=== PATIENT | male | born 1975 | race Caucasian/White ===

== ENCOUNTER 2025-07-08 18:37 | Emergency (ER) | payer OTHER, SELFPAY ==
--- NOTE | ~2025-07-08 | XR_ITS ---
EXAMINATION: XR hand RT min 3V DATE: 07/08/2025 18:56 INDICATION: Injury right thumb. TECHNIQUE: 3 views including the right thumb were obtained. COMPARISON: None. FINDINGS: No acute fracture or dislocation of right hand thumb. Soft tissue swelling at the base of the first metacarpal. No other abnormalities are seen. IMPRESSION: 1. No acute bony lesions of right hand including thumb. Repeat x-ray is recommended if symptoms are localized and persistent after a few days. Reviewed, dictated and finalized at location [facility] IMPRESSION: 1. No acute bony lesions of right hand including thumb. Repeat x-ray is recomme nded if symptoms are localized and persistent after a few days.
[2025-07-08 18:48] VITALS: BP 144/81; PULSE 76; RESP 16; TEMP 36.4; O2SAT 98
--- NOTE | 2025-07-08 18:50 | ED.UPPEXIN ---
HPI - Extremity Injury (Upper) General Chief Complaint: Extremity Injury, Upper <Grace Kat PA-C - Last Filed: 07/09/25 10:10> Stated Complaint: hand injury <CRISTOFER García Last Filed: 07/09/25 10:10> Time Seen by Provider: 07/08/25 18:50 <CRISTOFER García Last Filed: 07/09/25 10:10> Focused HPI: This is a 50 year old male that presents to the ER for right hand injury. Sustained a couple of days ago playing basketball. Reports decreased ROM in the thumb. GENERAL: Well-appearing, well-nourished, and in no acute distress. HEAD: Normocephalic, atraumatic. CHEST: No respiratory distress. HEART: Regular rate NEURO: ?Alert and oriented x3. Patient screened in triage and initial orders placed.? ?Additional care and disposition to be based upon?diagnostic testing and treatment. <Grace Kat PA-C - Last Filed: 07/09/25 10:10> Focused HPI: This is a 50 year old male that presents to the ER for right hand injury. Sustained a couple of days ago playing basketball. Reports decreased ROM in the thumb. GENERAL: Well-appearing, well-nourished, and in no acute distress. HEAD: Normocephalic, atraumatic. CHEST: No respiratory distress. HEART: Regular rate NEURO: ?Alert and oriented x3. Patient screened in triage and initial orders placed.? ?Additional care and disposition to be based upon?diagnostic testing and treatment. <Ashley Cabezas PA-C - Last Filed: 07/08/25 21:17> Source: patient <CRISTOFER Tiwari Last Filed: 07/08/25 21:17> Mode of arrival: ambulatory <Ashley Cabezas PA-C - Last Filed: 07/08/25 21:17> Limitations: no limitations <CRISTOFER Tiwari Last Filed: 07/08/25 21:17> History of Present Illness HPI narrative: Agree with above HPI. Reports initial injury happened 1.5 weeks ago but he recently re-injured himself. States he is unable to make a thumbs-up sign. Denies numbness. Denies significant pain. <CRISTOFER Tiwari Last Filed: 07/08/25 21:17> Related Data Allergies/Adverse Reactions: Allergies Allergy/AdvReac Type Severity Reaction Status Date / Time No Known Allergies Allergy Verified 07/08/25 18:50 <Grace Kat PA-C - Last Filed: 07/09/25 10:10> Review of Systems Review of Systems: All systems reviewed & are unremarkable except as noted in HPI. <CRISTOFER Tiwari Last Filed: 07/08/25 21:17> All systems reviewed & are unremarkable except as noted in HPI and below <Ashley Cabezas PA-C - Last Filed: 07/08/25 21:17> Exam Narrative: GENERAL: Well appearing, well-nourished, non-toxic, in no acute distress. HEAD: Normocephalic, atraumatic. RESPIRATORY: Airway patent, respirations nonlabored. CARDIOVASCULAR: Regular rate and rhythm. Radial pulses strong and easily palpable MUSCULOSKELETAL: Moves all extremities. Slight limitation in full abduction of right thumb and full extension into the limbs of position. No significant swelling or tenderness around MCP joint. Sensation intact. Cap refill intact SKIN: Warm, dry, normal color. NEURO: A&O X3. Speech clear. No ataxic movements. PSYCHIATRIC: Appropriate mood and affect. Normal interaction. <CRISTOFER Tiwari Last Filed: 07/08/25 21:17> Course Vital Signs Vital signs: Vital Signs Temperature 97.6 F 07/08/25 18:48 Pulse Rate 76 07/08/25 18:48 Respiratory Rate 16 07/08/25 18:48 Blood Pressure 144/81 H 07/08/25 18:48 Pulse Oximetry 98 07/08/25 18:48 Oxygen Delivery Room Air 07/08/25 18:48 Temperature 97.6 F 07/08/25 18:48 Pulse Rate 74 07/08/25 20:14 Respiratory Rate 15 07/08/25 20:14 Blood Pressure 131/90 07/08/25 20:14 Pulse Oximetry 100 07/08/25 20:14 Oxygen Delivery Room Air 07/08/25 18:48 <Grace Kat PA-C - Last Filed: 07/09/25 10:10> Vital Signs Temperature 97.6 F 07/08/25 18:48 Pulse Rate 76 07/08/25 18:48 Respiratory Rate 16 07/08/25 18:48 Blood Pressure 144/81 H 07/08/25 18:48 Pulse Oximetry 98 07/08/25 18:48 Oxygen Delivery Room Air 07/08/25 18:48 Temperature 97.6 F 07/08/25 18:48 Pulse Rate 74 07/08/25 20:14 Respiratory Rate 15 07/08/25 20:14 Blood Pressure 131/90 07/08/25 20:14 Pulse Oximetry 100 07/08/25 20:14 Oxygen Delivery Room Air 07/08/25 18:48 <Ashley Cabezas PA-C - Last Filed: 07/08/25 21:17> MDM - Extremity Injury (Upper) MDM Narrative Medical decision making narrative: Patient's injury is consistent with musculoskeletal etiology. No signs of neurologic or vascular compromise on physical examination. Compartments are soft without signs of compartment syndrome. XR of right hand without acute osseous abnormality. Discussed this with patient. Discussed high likelihood of gamekeeper's thumb, ligamentous injury. Discussed splinting. Patient's initial injury was over 1 week ago. Advised patient to obtain thumb spica splint [id number] or online and wear at all times. Patient is currently visiting here from [place]. Advised she will need to follow-up with a hand specialist upon return home. Given CD disc of x-ray imaging. Discussed further management, limiting strenuous activity/heavy lifting/further basketball at this time. Given return precautions. Discharged in stable condition. <Grace Kat PA-C - Last Filed: 07/09/25 10:10> Patient?s injury is consistent with musculoskeletal etiology. No signs of neurologic or vascular compromise on physical examination. Compartments are soft without signs of compartment syndrome. XR of right hand without acute osseous abnormality. Discussed this with patient. Discussed high likelihood of gamekeeper's thumb, ligamentous injury. Discussed splinting. Patient's initial injury was over 1 week ago. Advised patient to obtain thumb spica splint [id number] or online and wear at all times. Patient is currently visiting here from [place]. Advised she will need to follow-up with a hand specialist upon return home. Given CD disc of x-ray imaging. Discussed further management, limiting strenuous activity/heavy lifting/further basketball at this time. Given return precautions. Discharged in stable condition. <Ashley Cabezas PA-C - Last Filed: 07/08/25 21:17> Medical Records Attestation: I reviewed the patient's medical records. <Ashley Cabezas PA-C - Last Filed: 07/08/25 21:17> Imaging Data Attestation: I personally reviewed and interpreted this imaging study as follows: <Ashley Cabezas PA-C - Last Filed: 07/08/25 21:17> Radiologist's impression: ITS Impressions Hand X-Ray 07/08/25 19:05 IMPRESSION: 1. No acute bony lesions of right hand including thumb. Repeat x-ray is recommended if symptoms are localized and persistent after a few days. <Ashley Cabezas PA-C - Last Filed: 07/08/25 21:17> Discharge Plan Discharge Clinical Impression: Sprain of hand, thumb, right Qualifiers: Encounter type: initial encounter Sprain of finger site: unspecified site Qualified Code(s): S63.601A - Unspecified sprain of right thumb, initial encounter <Grace Kat PA-C - Last Filed: 07/09/25 10:10> Patient Disposition: Home <CRISTOFER García Last Filed: 07/09/25 10:10> Condition: Stable <CRISTOFER García Last Filed: 07/09/25 10:10> Instructions: Antibiotic Form, Skier's Thumb (ED) <CRISTOFER García Last Filed: 07/09/25 10:10> Additional Instructions: Obtain thumb spica splint online and wear at all times. Avoid strenuous activity or heavy lifting. Follow-up with Hand surgery for further evaluation. Return for new or worsening concerns, recurrent fall or injury, numbness, etc <CRISTOFER García Last Filed: 07/09/25 10:10> Patient Language: Maltese <Grace Kat PA-C - Last Filed: 07/09/25 10:10> Follow-up/Referrals: Rasta Ng MD [Physician, Plastic Surgery] Referral Note: PLASTIC/HAND SURGERY PHYSICIAN NOT ON STAFF,NONSTAFF [Primary Care Provider] Ronen Espana MD [Physician, Orthopedics] Referral Note: ORTHOPEDICS <Grace Kat PA-C - Last Filed: 07/09/25 10:10> Time of Disposition: 19:48 <Grace Kat PA-C - Last Filed: 07/09/25 10:10> 19:48 <Ashley Cabezas PA-C - Last Filed: 07/08/25 21:17>
--- OUTSIDE RECORDS SUMMARY | 2025-07-08 20:03 | XMS_ITS | Encounter Summary ---
Author Organization [facility] Address [address] [place] [address] Care Team Providers Care Photolithographic Stripper Name Role Phone Juanjo Dominguez Nimesh DMD Unavailable [phone] Carlos Moyer [facility] Unavailable [phone] Abril Barry DO Primary Care Provider Alanna Rice DMD Unavailable [phone] Encounter Details Date Type Department Care Team (Late st Contact Info) Description 02/10/2023 Orders Only [facility] [address], [place] [id number] Interface, Pharmacy In [place] Social History Tobacco Use Types Packs/Day Years Used Date Smoking Tobacco: Never Smokeless Tobacco: Never Alcohol Use Standard Drinks/Week Comments Not Asked 0 (1 standard drink = 0.6 oz pur e alcohol) Overall Financial Resource Strain (CARDIA) Florencio r Date Recorded How hard is it for you to pa y for the very basics like food, housing, medical care, and heating? Not hard at all 03/13/2022 Hunger Vital Sign Answer Date Recorded Within the past 12 months, y ou worried that your food would run out before you got the money to buy more. Never true 03/13/20 22 Within the past 12 months, t he food you bought just didn't last and you didn't have money to get more. Never true 03/13/2022 PRAPARE - Transportation Answer Date Re corded In the past 12 months, has l ack of transportation kept you from medical appointments or from getting medications? No 02/14 In the past 12 months, has l ack of transportation kept you from meetings, work, or from getting things needed for daily living? No 03/13/2022 Current Social Needs Answer Date Record ed Would you like someone from your care team to call you to assist with any needs noted above? No 03/13/2022 Substance Use Types Use/Week Comments Not Asked Sex and Gender Information Value Date Recorded Sex Assigned at Not on file Legal Sex Male 2:49 PM PST Gender Identity Not on file Sexual Orientation Not on file documented as of this encounter Plan of Treatment Not on file documented as of this encounter Visit Diagnoses Diagnosis [place] documented in this encounter Care Teams Photolithographic Stripper Relationship Specialty Start Date End Date Juanjo Dominguez DMD [address] [facility], [address] [address] PCP - Dentist 06/11/16 11/30/23 Carlos Moyer RDH [address] [facility], [address] [address] PCP - Dental Hygienist Dental Hygienist 05/29/21 Abril Barry DO [address] [place] [address] PCP - General Family Practice 07/27/22 Alanna Rice DMD [address] [place] [address] PCP - Dentist 12/01/23 documented as of this encounter Additional Source Comments The information being disclosed may contain records protected by federal confidentiality rule 42 CFR Part 2. If so, please note: This information has been disclosed to you from records protected by federal confidentiality rules (42 CFR part 2). The federal rules prohibit you from making any further disclosure of information in this record that identifies a patient as having or having had a substance use disorder either directly, by reference to publicly available information, or through verification of such identification by another person unless further disclosure is expressly permitted by the written consent of the individual whose information is being disclosed or as otherwise permitted by 42 CFR part 2. A general authorization for the release of medical or other information is NOT sufficient for this purpose (see ?? 2.31). The federal rules restrict any use of the information to investigate or prosecute with regard to a crime any patient with a substance use disorder, except as provided at ? 2.12(c)(5) and 2.65.[facility]
--- OUTSIDE RECORDS SUMMARY | 2025-07-08 20:03 | XMS_ITS | Encounter Summary ---
Author Organization [facility] Address [address] [place] [address] Care Team Providers Care Customer Success Director Name Role Phone Carlos Moyer RDH Unavailable Abril Barry DO Primary Care Provider Alanna Rice DMD Unavailable [phone] Encounter Details Date Type Department Care Team (Late st Contact Info) Description 06/29/2024 Orders Only [facility] [address] [place], [place] [id number] Interface, Pharmacy In [place] Social History Tobacco Use Types Packs/Day Years Used Date Smoking Tobacco: Never Smokeless Tobacco: Never Alcohol Use Standard Drinks/Week Comments Not Asked 0 (1 standard drink = 0.6 oz pur e alcohol) Overall Financial Resource Strain (CARDIA) Meñoe r Date Recorded How hard is it for you to pa y for the very basics like food, housing, medical care, and heating? Not hard at all 03/13/2022 PHQ-2 Answer Date Recorded PHQ-2 Total Score 0 11/24/2023 Hunger Vital Sign Answer Date Recorded Within [...] [place] documented in this encounter Care Teams Customer Success Director Relationship Specialty Start Date End Date Carlos Moyer RDH [address] [facility], [facility] [place] [address] [place] [address] PCP - Dental Hygienist Dental Hygienist 05/29/21 Abril Barry DO [address] [place] [address] PCP - General Family Practice 07/27/22 Alanna Rice DMD [address] [facility] [place] [address] PCP - Dentist 12/01/23 documented as of [...] except as provided at ? 2.12(c)(5) and 2.65.[facility]
--- OUTSIDE RECORDS SUMMARY | 2025-07-08 20:03 | XMS_ITS | Encounter Summary ---
Author Organization [facility] Address [address] [place] [address] Care Team Providers Care Nut Grader Name Role Phone Carlos Moyer [facility] Unavailable [phone] Abril Barry DO Primary Care Provider Alanna Rice DMD Unavailable [phone] Encounter Details Date Type Department Care Team (Late st Contact Info) Description 03/28/2025 Orders Only [facility] [address], [place] [id number] Interface, Pharmacy In [place] Social History Tobacco [...] food, housing, medical care, and heating? Not very hard 01/11/2025 PHQ-2 Answer Date Recorded PHQ-2 Total Score 0 11/24/2023 Hunger Vital Sign Answer Date Recorded Within the past 12 months, y ou worried that your food would run out before you got the money to buy more. Never true 01/12/20 25 Within the past 12 months, t he food you bought just didn't last and you didn't have money to get more. Never true 01/11/2025 PRAPARE - Transportation Answer Date Re corded In the past 12 months, has l ack of transportation kept you from medical appointments or from getting medications? No 02/14 In the past 12 months, has l ack of transportation kept you from meetings, work, or from getting things needed for daily living? No 03/13/2022 Current Social Needs Answer Date Record ed Would you like us to assist you in getting help with any of the following? Not at this time 01/11/2025 How do you prefer to get assistance? Not on file 01/11/2025 Call me at: Not on file 01/11/2025 Substance Use Types Use/Week Comments Not Asked Sex and Gender Information Value Date Recorded Sex Assigned at Not on file Legal Sex Male 2:49 PM PST Gender Identity Not on file Sexual Orientation Not on file documented as of this encounter Plan of Treatment Not on file documented as of this encounter Visit Diagnoses Diagnosis [place] documented in this encounter Care Teams Nut Grader Relationship Specialty Start Date End Date Carlos Moyer RDH [address] [facility] [address] [place] [address] PCP - Dental Hygienist Dental Hygienist 05/29/21 Abril Barry DO [address] [place] [address] PCP - General Family Practice 07/27/22 Alanna Rice DMD [address] [place] [address] PCP - Dentist 12/01/23 documented as of [...] except as provided at ? 2.12(c)(5) and 2.65.[facility]
--- OUTSIDE RECORDS SUMMARY | 2025-07-08 20:03 | XMS_ITS | Encounter Summary ---
Author Organization [facility] No [facility] Address [address] [place] [address] Care Team Providers Care Test Preparation Tutor Name Role Phone Juanjo Dominguez Nimesh DMD Unavailable [phone] Unavailable [phone] Abril Barry DO Primary Care Provider Alanna Rice DMD Unavailable [phone] Encounter Details Date Type Department Care Team (Late st Contact Info) Description 10/27/2022 Orders Only [facility] [address] [place] [address] Abdiel Hill MD [address] [place] [address] Social History Tobacco Use Types Packs/Day Years [...] documented as of this encounter Visit Diagnoses Not on filedocumented in this encounter Care Teams Test Preparation Tutor Relationship Specialty Start Date End Date Juanjo Dominguez DMD [address] [facility], [address] [address] PCP - Dentist 06/11/16 11/30/[address] [facility], [address] [address] PCP - Dental Hygienist Dental Hygienist 05/29/21 Abril Barry DO [address] [place] [address] PCP - General Family Practice 07/27/22 Alanna Rice DMD [address] [place] [address] PCP - Dentist 12/01/23 documented as of [...] except as provided at ? 2.12(c)(5) and 2.65.[facility]
--- OUTSIDE RECORDS SUMMARY | 2025-07-08 20:03 | XMS_ITS | Encounter Summary ---
Author Organization [facility] No [facility] Address [address] [place] [address] Care Team Providers Care Mechanic/Welder Name Role Phone Carlos Moyer RDH Unavailable Abril Barry DO Primary Care Provider Alanna Rice DMD Unavailable [phone] Encounter Details Date Type Department Care Team (Late st Contact Info) Description 03/16/2024 Orders Only [facility] [address], [place] [id number] Interface, Pharmacy In [place] Social History Tobacco [...] [place] documented in this encounter Care Teams Mechanic/Welder Relationship Specialty Start Date End Date Carlos Moyer RDH [address] [facility], [facility] [address] [place] [address] PCP - Dental Hygienist Dental Hygienist 05/29/21 Abril Barry DO [address] [place] [address] PCP - General Family Practice 07/27/22 Alanna Rice DMD [address] [place] [facility] [place] [address] PCP - Dentist 12/01/23 documented as of [...] except as provided at ? 2.12(c)(5) and 2.65.[facility]
--- OUTSIDE RECORDS SUMMARY | 2025-07-08 20:03 | XMS_ITS | Encounter Summary ---
Author Organization [facility] Address [address] [place] [address] Care Team Providers Care Roustabout Crew Leader Name Role Phone Carlos Moyer RDH Unavailable [phone] Abril Barry DO Primary Care Provider Alanna Rice DMD Unavailable [phone] Encounter Details Date Type Department Care Team (Late st Contact Info) Description 11/30/2024 Orders Only [facility] [address], [place] [phone] Interface, Pharmacy In [place] Social History Tobacco [...] [place] documented in this encounter Care Teams Roustabout Crew Leader Relationship Specialty Start Date End Date Carlos Moeyr RDH [address] [facility], [facility] [address] [place] [address] PCP - Dental Hygienist Dental Hygienist 05/29/21 Abril Barry DO [address] [place] [address] PCP - General Family Practice 07/27/22 Alanna Rice DMD [address] [facility] [place] [address] PCP - Dentist 12/01/23 documented as of [...] except as provided at ? 2.12(c)(5) and 2.65.[facility]
--- OUTSIDE RECORDS SUMMARY | 2025-07-08 20:03 | XMS_ITS | Encounter Summary ---
Author Organization [facility] No [facility] Address [address] [place] [address] Care Team Providers Care Fleet Maintenance Manager Name Role Phone Juanjo Dominguez Nimesh DMD Unavailable [phone] Carlos Moyer [facility] Unavailable [phone] Abril Barry DO Primary Care Provider Alanna Rice DMD Unavailable [phone] Encounter Details Date Type Department Care Team (Late st Contact Info) Description 09/16/2023 Orders Only [facility] [address] [place], [place] [phone] Interface, Pharmacy In [place] Social History Tobacco [...] [place] documented in this encounter Care Teams Fleet Maintenance Manager Relationship Specialty Start Date End Date Juanjo Dominguez DMD [address] [facility], [address] [address] PCP - Dentist 06/11/16 11/30/23 Carlos Moyer RDH [address] [facility], [address] [address] PCP - Dental Hygienist Dental Hygienist 05/29/21 Abril Barry DO [address] [place] [address] PCP - General Family Practice 07/27/22 Alanna Rice DMD [address] [place] [address] PCP - Dentist 12/01/23 documented as of [...] except as provided at ? 2.12(c)(5) and 2.65.[facility]
--- OUTSIDE RECORDS SUMMARY | 2025-07-08 20:03 | XMS_ITS | Clinical Summary ---
Author Organization [facility] Address [address] [place] [address] Care Team Providers Care Food Checkers And Cashiers Supervisor Name Role Phone Carlos Moyer RDH Unavailable Abril Barry DO Primary Care Provider KrystalAlanna galaviz DMD Unavailable [phone] Source Comments NOTE: The information displayed by Care Everywhere is extracted from the complete medical record and may not identify all current or past patient conditions. See below for further instructions regarding Substance Use Disorder patients.[facility] Allergies Active Allergy Reactions Criticality Noted Date Comments No Known Drug Allergies 01/27/2009 Medications Terbinafine (LAMISIL) 250 mg Oral TabIndications :ONYCHOMYCOSIS Take 1 tablet by mouth daily for 3 months 90 tablet 5 026 Active Additional Information Patient not taking.Reported on 05/10/2025 Minoxidil (LONITEN) 2.5 mg Oral TabIndications :ALOPECIA Take half tablet by mouth daily 45 tablet 2 06/28/2025 6:40 AM PST 5 026 Active Sodium Fluoride (FLUORIDEX DAILY DEFENSE) 1.1 % [place] PasteIndicatio ns:DENTAL CARIES Use instead of toothpaste and brush teeth for at least 1 minute daily at bedtime. Do not eat, drink, or rinse for 30 minutes after using 112 g 06/28/2025 6:40 AM PST 5 026 Active Typhoid Vaccine Live (VIVOTIF) 2 billion unit Oral CPDR SR CapIndications :VACCINATION,P ROPHYLACTIC MEASURE Take 1 capsule by mouth every other day 1 hour before breakfast with a large glass of water for 4 doses, Refrigerate, Do not take with antibiotics, Start at least 2 weeks before trip 4 capsule 5 026 Active Atovaquone-Pro guanil (MALARONE) 250-100 mg Oral TabIndications :PROPHYLACTIC MEASURE Take 1 tablet by mouth daily starting 1 day before entering malaria risk area, every day during trip and for 7 days after leaving the area to prevent malaria 30 tablet 5 026 Active Sodium Fluoride (FLUORIDEX/CLI NPRO 5000) 1.1 % [place] PasteIndicatio ns:DENTAL CARIES Use instead of toothpaste and brush teeth for at least 1 minute daily at bedtime, do not eat, drink, or rinse for 30 minutes after using 112 g 4 025 Discontinu ed(Continu e Therapy) Fluorouracil (EFUDEX) 5 % Top CreaIndication s:ACTINIC KERATOSIS Apply to affected area(s) every morning and evening for 21 days 40 g 4 025 Additional Information Patient not taking.Reported on 08/05/2024 Active Problems Problem Noted Date Diagnosed Date LEFT INGUINAL HERNIA 05/10/2025 HX OF RETINAL TEAR 01/20/2024 HX OF LASER RETINOPEXY FOR RETINAL TEAR 01/20/20 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 This variant is known to cause/be associated with an increased risk for melanoma, pancreatic, and other cancers (sometimes called familial atypical multiple mole melanoma syndrome [FAMMM]). RIGHT THUMB PAIN 10/25/2011 ARTHRALGIA OF ANKLE OR FOOT. 10/25/2011 CERVICALGIA. 10/25/2011 FHX OF DM 10/25/2011 SPRAIN OF ANKLE. 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 04/01/2009 SPRAIN ELBOW AND FOREARM. 04/01/2009 HX OF MELANOMA, SKIN 04/01/2008 Overview (08/05/2019): Lt upper back, unknown details, s/p WLE 1994 Encounters Date Type Department Care Team Description 06/21/2025 1:20 PM PST Dental Annual Exam [facility] [address] [place] [address] Alma Mccann [facility] (Recall prophy) 05/10/2025 10:00 AM PDT Office Visit [facility] General Surgery [address] [place] [address] Kaushik Donato MD LEFT INGUINAL HERNIA (Primary Dx); VACCINATION from Last 3 Months Immunizations Immunization Administration Dates Next Due COVID-19 mRNA LNP-S, PF, () 12YRS-Adult(Pfizer), 30mcg/0.3mL 05/12/2023 COVID-19 mRNA LNP-S, bivalen t PF 12yrs-adult (Pfizer), 30mcg/0.3mL 07/02/2022 COVID-19 mRNA, LNP-S, PF (Rheonix-BioNTMinuum) PURPLE CAP 06/19/2021 COVID-19 mRNA, PF, (2023-) 12yrs-adult (Pfizer), 30 mcg/0.3mL 06/29/2024 COVID-19 mRNA, pf ([id number] ) 12yrs-adult (Comirnaty Rheonix) 30 mcg/0.3mL 05/10/2025 HAV adult (Hepatitis A) 03/15/2011,08/06/2010 HBV adult (Hepatitis B) 10/25/2011,03/15/2011 HBV ped/adol, 3dose kiah (Hepatitis B) 08/06/2010 INF N1N2-98 standard dose (I nfluenza [id number]). 06/23/2009 INFS Pres Free 6mos-Adult (F lulaval Quadrivalent) (Influenza) 07/22/2017 INFS pres free 6mos-adult (F luarix quadrivalent) (influenza) 07/02/2022,06/06/2020,08/06/2019,2017 INFS pres free 6mos-adult (F luzone quadrivalent) (influenza) 05/12/2023 INFS pres free 6mos-adult (F luzone trivalent) (influenza) 05/10/2025,06/29/2024 INFS pres free, trivalent (i nfluenza) seasonal unspecified 07/19/2016,06/05/2014 INFS with preservative, triv alent (influenza) seasonal unspecified 08/28/2012 INFs (Influenza split virus ). 06/29/2010 INFs 4yrs-adult (influenza) 08/28/2012 INFs pres free 4yrs-adult (F LUVIRIN) (Influenza) 07/19/2016,06/05/2014 INFs pres free 9yrs-adult (A FLURIA) (Influenza) 06/29/2010 MMR (Measles, Mumps, Rubella) 08/17/2010 TD pres free (Tetanus, Dipht heria) (TdVax), adsorbed 04/15/2007 TD pres free (Tetanus, Dipht heria) (Tenivac), adsorbed 12/31/2019 Tdap (ADACEL) (Tetanus, diph theria, acellular pertussis) 03/15/2011 Tdap (Tetanus, diphtheria, a cellular pertussis) 03/15/2011 YF (Yellow fever) 08/17/2010 infs pres free 4yrs-adult (f lucelvax quadrivalent) (influenza) 05/09/2021 Family History Medical History Relation Comments Diabetes Father Pancreatic Cancer Father Relation Status Comments Father Mother Alive Social History Tobacco Use Types Packs/Day Years Used Date Smoking Tobacco: Never Smokeless Tobacco: Never Tobacco Cessation:Counseling Given: Not Answered Alcohol Use Standard Drinks/Week Comments Not Asked 0 (1 standard drink = 0.6 oz pur e alcohol) Overall Financial Resource Strain (CARDIA) Answe r Date Recorded How hard is it [...] on file Sexual Orientation Not on file Last Filed Vital Signs Vital Sign Reading Time Taken Comments Blood Pressure 127/76 06/21/2025 12:52 PM PST Pulse 85 06/21/2025 12:52 PM PST Temperature 36.7 C (98 F) 01/17/2025 2:29 PM PDT Respiratory Rate 15 01/17/2025 2:29 PM PDT Oxygen Saturation 99% 01/17/2025 2:29 PM PDT Inhaled Oxygen Concentration - - Weight 99.9 kg (220 lb 3.2 oz) 05/10/2025 10:04 AM PDT Height 188 cm (6' 2) 05/10/2025 10:04 AM PDT Body Mass Index 28.27 05/10/2025 10:04 AM PDT Plan of Treatment Health Maintenance Due Date Last Done Comments Depression Screening PHQ-2 1993 Lipid Panel 09/17/2024 09/17/2019, 06/15, 03/15/2011 Hemoglobin A1c 09/09/2025 09/09/2022, 06/15, 04/17/2010 Dental Prophylaxis 12/20/2025 06/21/2025, 0 11/04/2023, 04/25/2023, Additional history exists Alcohol Screening (AUDIT) 01/11/2026 01/11/2025 Blood Pressure Check 05/10/2026 05/10/2025, 05/10/20 Dental Oral Exam 06/21/2026 06/21/2025, , 09/30/2022, Additional history exists Dental X-Ray: Bitewings 06/21/2026 06/21/20 25, 11/04/2023, 09/30/2022, Additional history exists Tetanus (4 - Td or Tdap) 12/30/2029 020, 03/15/2011, 03/15/2011, Additional history exists HIV Screening Completed 04/17/2010 COVID-19 Vaccine Completed 05/10/2025, , 05/12/2023, Additional history exists Influenza Vaccine Completed 05/10/2025, , 05/12/2023, Additional history exists HiB Aged Out No longer eligi ble based on patient's age to complete this topic MencnACWY (MCV4) Aged Out No longer e ligible based on patient's age to complete this topic Rotavirus Aged Out No longer eligi ble based on patient's age to complete this topic Procedures Procedure Name Priority Date/Time Associated Diagnosis Comments TOPICAL APPLICATION OF FLUORIDE VARNISH Routine 06/21/2025 1:20 PM PST PROPHYLAXIS - ADULT Routine 06/21/2025 1 :20 PM PST DENTAL BITEWINGS FOUR FILMS Routine 06/21/2025 1:20 PM PST PERIODIC ORAL EVALUATION ESTABLISHED PATIENT Routine 06/21/2025 1:20 PM PST HEMOGLOBIN A1C SCREENING Routine 09/09/2022 9:08 AM PST SCREENING FOR METABOLIC DISORDER LIPID PANEL (CHOL, TRIG, DHDL, CALC LDL) Routine 09/17/2019 11:59 AM PST SCREENING FOR LIPID DISORDER from Last 3 Months or Most Recently Relevant to Health Maintenance Results * HEMOGLOBIN A1C SCREENING (09/09/2022 9:08 AM PST) HbA1c Screen 5.2 <=5.6 % [facility] Comment: HbA1c for Screening (do not use this order in patients known to have DM) Reference range: Normal <5.7 PreDM 5.7-6.4 DM >=6.5 needs confirmation to establish diagnosis of DM BLOOD / Unknown 09/09/2022 9 :08 AM PST 09/09/2022 12:51 PM PST Abril Barry DO BLOOD Final R esult [facility] [address] [place] [address] * LIPID PANEL (CHOL, TRIG, DHDL, CALC LDL) (09/17/2019 11:59 AM PST) Cholesterol 160 <=239 mg/dL [facility] Comment: Cholesterol NCEP Guidelines <200 mg/dL Desirable 200-239 mg/dL Borderline Risk >239 mg/dL High Risk Triglyceride 45 <=499 mg/dL [facility] HDL Chol 62 >=40 mg/dL [facility] LDL Calc 89 <=159 mg/dL [facility] Lipid Panel Interpretation Interp Guide: [facility] Comment: LDL Cholesterol NCEP guidelines: < 100 mg/dL Optimal 100 - 129 mg/dL Near Optimal 130 - 159 mg/dL Borderline High 160 - 189 mg/dL High > 189 mg/dL Very High Triglycerides >= 500 mg/dL should be confirmed with a fasting triglyceride test Fasting triglycerides 500-999: Consider treatment if patient has history of pancreatitis Fasting triglycerides >=1000: Treatment recommended There is no direct evidence linking tryglyceride-lowering therapy with decreased pancreatitis risk. BLOOD / Unknown 09/17/2019 1 1:59 AM PST 09/17/2019 4:02 PM PST Bryan Fiore MD BLOOD Final Result Performing Organization Address City/[facility]/ZIP Co de Phone Number [facility] [address], [place] [address] from Last 3 Months or Most Recently Relevant to Health Maintenance Insurance DEDUCTIBLE PLAN Member Subscriber Plan / Payer ( fective 2023-Present) Name:Joseph Beard Relation to Subscriber:Spouse Name:Yasmanyalycia Abby Marylu Date of :1969 (Home) (Work) Address: [address] [place] [address] Payer ID:[id number] (NAIC) *[id number] Type:[facility] Address: [address] [facility], [place] [facility] DEDUCTIBLE PLAN Member Subscriber Plan / Payer ( fective 2023-Present) Name:Joseph Beard Relation to Subscriber:Spouse Name:Yasmanyalycia Abby Marylu Date of :1969 (Home) (Work) Address: [address] [place] [address] Payer ID:[id number] (NAIC) *[id number] Type:[facility] Address: [address] [facility], [place] [facility] DENTAL [facility] [place] * Guarantor: [employer]FI[employer] Account Type Relation to Patient Date of Phone Billing Address Corporate Account [address] [place] [id number] Care Teams Food Checkers And Cashiers Supervisor Relationship Specialty Start Date End Date Carlos Moyer RDH [address] [facility] [address] [place] [address] PCP - Dental Hygienist Dental Hygienist 05/29/21 Abril Barry DO [address] [place] [address] PCP - General Family Practice 07/27/22 Alanna Rice DMD [address] [facility] [place] [address] PCP - Dentist 12/01/23 Additional Source Comments The information being disclosed [...] except as provided at ? 2.12(c)(5) and 2.65.[facility]
[2025-07-08 20:14] VITALS: BP 131/90; PULSE 74; RESP 15; O2SAT 100
== END 2025-07-08 20:15 | disposition home or self-care (01) ==
PROVIDERS: Emergency Provider Physician Assistant
DX: S63.601A Unspecified sprain of right thumb, initial encounter (principal); X58.XXXA Exposure to other specified factors, initial encounter
CPT/HCPCS: 73130; 99283